=== PATIENT | male | born 1985 | race Caucasian/White ===

== ENCOUNTER 2019-02-04 13:52 | Emergency (ER) | payer MEDICAID ==
[2019-02-04 15:27] LABS: BASOPHILS % (AUTO) 0.4 %; EOSINOPHILS % (AUTO) 0.4 %; HGB - HEMOGLOBIN 13.1 g/dL (14.0-18.0); LYMPHOCYTES # (AUTO) 0.9 10^3/uL (1.5-3.5); LYMPHOCYTES % (AUTO) 8.3 %; MEAN CORPUSCULAR HGB CONC 33.5 g/dL (32.0-36.0); MEAN CORPUSCULAR VOLUME 86.5 fL (80.0-94.0); MEAN PLATELET VOLUME 10.4 fL (7.4-11.4); MONOCYTES # (AUTO) 0.7 10^3/uL (0.0-1.0); MONOCYTES % (AUTO) 6.9 %; NEUTROPHILS % (AUTO) 83.4 %; PLT - PLATELET COUNT 191 10^3/uL (130-450); RED BLOOD COUNT 4.52 10^6/uL (4.70-6.10); RED CELL DISTRIBUTION WIDTH 12.4 % (12.0-15.0); WHITE BLOOD COUNT 10.8 x10^3/uL (4.8-10.8)
[2019-02-04 15:36] LABS: ALBUMIN 3.8 g/dL (3.2-5.5); ALBUMIN/GLOBULIN RATIO 1.3 (1.0-2.2); BILIRUBIN,TOTAL 0.6 mg/dL (0.2-1.0); CALCIUM 9.4 mg/dL (8.5-10.3); CREATININE 0.6 mg/dL (0.6-1.2); TOTAL PROTEIN 6.8 g/dL (6.7-8.2)
--- NOTE | 2019-02-04 15:49 | XRAY Report ---
Reason: fever and cough Procedure Date: 02/04/2019 Accession Number: [id number] / [id number] Procedure: XR - Chest 2 View X-Ray CPT Code: 32203 FULL RESULT: EXAM: CHEST RADIOGRAPHY EXAM DATE: 02/04/2019 03:39 PM. CLINICAL HISTORY: Fever and cough. COMPARISON: None. TECHNIQUE: 2 views. FINDINGS: Lungs/Pleura: There is increased opacity within the left lower lobe. There is no evidence of pleural effusion. There is no pneumothorax. Mediastinum: Heart and mediastinal contours are unremarkable. Other: None. IMPRESSION: There is increased opacity within the left lower lobe. This is suspicious for pneumonia. Interval follow-up film posttreatment recommended to demonstrate resolution of this process and to exclude underlying pathology. RADIA
[2019-02-04 16:06] LABS: BILIRUBIN,URINE NEGATIVE (NEGATIVE); GLUCOSE, URINE (UA) NEGATIVE (NEGATIVE); KETONES,URINE (UA) NEGATIVE (NEGATIVE); LEUKOCYTE ESTERASE, URINE NEGATIVE (NEGATIVE); NITRITE,URINE NEGATIVE (NEGATIVE); OCCULT BLOOD,URINE NEGATIVE (NEGATIVE); PROTEIN,URINE NEGATIVE (NEGATIVE); UROBILINOGEN,URINE 0.2 (NORMAL) E.U./dL (NORMAL)
[2019-02-04 16:08] LABS: CLARITY,URINE CLEAR (CLEAR)
[2019-02-04 16:12] VITALS: BP 107/68
[2019-02-04] MEDS ORDERED: CHERRY SYRUP 10 ML UDC PO ONE (16:16)
[2019-02-04] MEDS ORDERED: DEXAMETHASONE 10 MG/ML VIAL PO STA (16:16)
[2019-02-04] MEDS ORDERED: ACETAMINOPHEN 325 MG TABLET PO STA (16:16)
[2019-02-04] MEDS ORDERED: DOXYCYCLINE 100 MG TABLET PO STA (16:16)
--- NOTE | 2019-02-04 16:20 | ED Physician Documentation ---
PD HPI URI - Stated complaint Stated Complaint: FEVER - Chief complaint Chief Complaint: Fever - History obtained from History obtained from: Patient - History of Present Illness Timing - onset: Last night Timing duration: Days (1) Timing details: Abrupt onset, Waxing and waning Associated symptoms: Fever (fever noted this morning. He is acting normally. Has had some cough and congestion for day or two.), Nasal congestion, Dry cough. No: Sore throat Contributing factors: No: Sick contact, Travel, COPD / asthma Similar symptoms before: Has not had sx before Review of Systems Constitutional: reports: Fever. denies: Myalgias Throat: denies: Sore throat Cardiac: denies: Chest pain / pressure Respiratory: reports: Cough. denies: Wheezing GI: denies: Abdominal Pain, Nausea, Vomiting, Diarrhea : denies: Dysuria Neurologic: denies: Generalized weakness, Altered mental status PD PAST MEDICAL HISTORY - Past Medical History Past Medical History: No Cardiovascular: None Respiratory: None Neuro: None Endocrine/Autoimmune: None GI: None : None HEENT: None Psych: Other Musculoskeletal: None Derm: None Other Past Medical History: mental delay and behavior issues - Past Surgical History Past Surgical History: No - Present Medications Home Medications: Ambulatory Orders Medication Instructions Recorded Confirmed Acetaminophen [Tylenol] 650 mg PO Q6H PRN #100 tablet 02/04/19 Doxycycline Hyclate 100 mg PO BID #20 capsule 02/04/19 Fluoxetine HCl 02/04/19 Levothyroxine [Synthroid] 02/04/19 [place] Carbonate 02/04/19 Risperidone [Risperdal] 1 mg PO 02/04/19 clonazePAM [KlonoPIN] 02/04/19 dexAMETHasone [Decadron] 4 mg PO DAILY #7 tablet 02/04/19 - Allergies Allergies/Adverse Reactions: Allergies Allergy/AdvReac Type Severity Reaction Status Date / Time No Known Drug Allergies Allergy Verified 02/04/19 14:00 - Social History Does the pt smoke?: No Smoking Status: Never smoker Does the pt drink ETOH?: No Does the pt have substance abuse?: No - Immunizations Immunizations are current?: Yes - POLST Patient has POLST: No PD ED PE NORMAL - Vitals Vital signs reviewed: Yes - General General: Alert and oriented X 3, No acute distress, Well developed/nourished - HEENT HEENT: Pharynx benign - Neck Neck: Supple, no meningeal sign, No adenopathy - Cardiac Cardiac: RRR, No murmur - Respiratory Respiratory: Clear bilaterally - Abdomen Abdomen: Soft, Non tender - Back Back: No CVA TTP - Derm Derm: Normal color, Warm and dry - Extremities Extremities: Normal ROM s pain - Neuro Neuro: Alert and oriented X 3, No motor deficit, Normal speech Results - Vitals Vitals: Vital Signs - 24 hr 02/04/19 02/04/19 13:58 16:12 Temperature 37 C 37.1 C Heart Rate 102 H 85 Respiratory 18 14 Rate Blood Pressure 112/69 107/68 O2 Saturation 100 96 Oxygen O2 Source Room air - Labs Labs: Laboratory Tests 02/04/19 02/04/19 02/04/19 15:10 15:10 15:10 WBC 10.8 RBC 4.52 L Hgb 13.1 L Hct 39.1 L MCV 86.5 MCH 29.0 MCHC 33.5 RDW 12.4 Plt Count 191 MPV 10.4 Neut # (Auto) 9.0 H Lymph # (Auto) 0.9 L Bertie # (Auto) 0.7 Eos # (Auto) 0.0 Baso # (Auto) 0.0 Absolute Nucleated RBC 0.00 Nucleated RBC % 0.0 Sodium 133 L Potassium 4.0 Chloride 101 Carbon Dioxide 24 Anion Gap 8.0 BUN 13 Creatinine 0.6 Estimated GFR (MDRD) 157 Glucose 115 H Lactic Acid 0.8 Calcium 9.4 Total Bilirubin 0.6 AST 18 ALT 17 Alkaline Phosphatase 58 Total Protein 6.8 Albumin 3.8 Globulin 3.0 Albumin/Globulin Ratio 1.3 Lipase 23 Urine Color Urine Clarity Urine pH Ur Specific [place] Urine Protein Urine Glucose (UA) Urine Ketones Urine Occult Blood Urine Nitrite Urine Bilirubin Urine Urobilinogen Ur Leukocyte Esterase Ur Microscopic Review Urine Culture Comments 02/04/19 16:00 WBC RBC Hgb Hct MCV MCH MCHC RDW Plt Count MPV Neut # (Auto) Lymph # (Auto) Bertie # (Auto) Eos # (Auto) Baso # (Auto) Absolute Nucleated RBC Nucleated RBC % Sodium Potassium Chloride Carbon Dioxide Anion Gap BUN Creatinine Estimated GFR (MDRD) Glucose Lactic Acid Calcium Total Bilirubin AST ALT Alkaline Phosphatase Total Protein Albumin Globulin Albumin/Globulin Ratio Lipase Urine Color YELLOW Urine Clarity CLEAR Urine pH 7.0 Ur Specific [place] 1.015 Urine Protein NEGATIVE Urine Glucose (UA) NEGATIVE Urine Ketones NEGATIVE Urine Occult Blood NEGATIVE Urine Nitrite NEGATIVE Urine Bilirubin NEGATIVE Urine Urobilinogen 0.2 (NORMAL) Ur Leukocyte Esterase NEGATIVE Ur Microscopic Review NOT INDICATED Urine Culture Comments NOT INDICATED PD MEDICAL DECISION MAKING - ED course Complexity details: reviewed results (has infiltrate c/w pneumonia), considered differential, d/w patient Departure - Departure Disposition: 01 Home, Self Care Clinical Impression: Fever Qualifiers: Fever type: unspecified Qualified Code(s): R50.9 - Fever, unspecified Pneumonia Qualifiers: Pneumonia type: due to unspecified organism Laterality: left Lung location: lower lobe of lung Qualified Code(s): J18.1 - Lobar pneumonia, unspecified organism Condition: Stable Record reviewed to determine appropriate education?: Yes Instructions: ED Pneumonia Adult Prescriptions: Acetaminophen [Tylenol] 650 mg PO Q6H PRN #100 tablet PRN Reason: PRN PAIN &/OR FEVER dexAMETHasone [Decadron] 4 mg PO DAILY #7 tablet Doxycycline Hyclate 100 mg PO BID #20 capsule Comments: Encourage frequent fluids. Continue the ibuprofen every 8 hours for fevers and pains. Interpose Tylenol every 6 hours if needed for fever as well. Doxycycline antibiotic twice daily for 10 days. Decadron steroid for bronchial inflammation daily for a week. Continues as usual medicines. Recheck if not improving over the next few days. There may still be some fevers up and down for the next couple of days until t he antibiotics have had time to be effective. Return if worsening general symptoms. Discharge Date/Time: 02/04/19 16:37
== END 2019-02-04 16:37 | disposition home or self-care (01) ==
LOC: ED 13:52
DX: J18.1 Lobar pneumonia, unspecified organism (principal)
CPT/HCPCS: 36415; 71046; 80053; 81003; 83605; 83690; 85025; 87040; 99283; A9270; 81001; 87086

== ENCOUNTER 2019-04-03 13:43 | Outpatient (CLI) | payer MEDICAID | END 2019-04-03 13:44 | disposition EMS.NT | LOC: EMS 13:43 | PROVIDERS: ATTEND Surgery | DX: T17.928A Food in respiratory tract, part unspecified causing other injury, initial encounter (principal) ==

== ENCOUNTER 2019-04-30 14:13 | Emergency (ER) | payer MEDICAID ==
[2019-04-30 14:23] VITALS: BP 139/88
[2019-04-30] MEDS ORDERED: AMOX/CLAV 875 MG/125 MG TABLET PO STA (15:10)
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
[2019-04-30] MEDS ORDERED: BACITRACIN ZINC OINT 1 PACKET TOP STA (15:14)
== END 2019-04-30 15:37 | disposition home or self-care (01) ==
LOC: ED 14:13
DX: S01.352A Open bite of left ear, initial encounter (principal); Y04.1XXA Assault by human bite, initial encounter
CPT/HCPCS: 99281; 99282; A9270